=== PATIENT | female | born 1985 | race Caucasian/White ===

== ENCOUNTER 2016-11-17 23:50 | Emergency (ER) | payer OTHER ==
[~2016-11-17] VITALS: Ht 170.2 cm; Wt 135.2 kg
[~2016-11-17 23:50] MED LIST: ARIP1TAB17 PO; BSP/10 PO; CYCL10TA6 PO; CYM/30 PO; DICY20TA10 PO; DOXE10CA PO; DULO-24 PO; ERGO500037 PO; HYDR50CA2 PO; INDO-22 PO; MXL10 PO; OMEP20CA9 PO; ONDA4TAB9 PO; PRAZ2CAP2 PO; PROM25TA9 PO; SUCR1TAB29 PO; TRAZ1TAB9 PO
[2016-11-17 23:55] VITALS: TEMP 36.5; Ht 170.2 cm; Wt 135.2 kg
[2016-11-18 00:25] LABS: URINE APPEARANCE CLEAR (CLEAR); URINE BILIRUBIN NEG (NEG); URINE COLOR YELLOW; URINE NITRITE NEG (NEG); URINE SPECIFIC GRAVITY 1.015 (1.000-1.030); UROBILINOGEN NEG (NEG); ZZUR CULT IF INDIC CLEAN CATCH NO
[2016-11-18 00:28] LABS: MANUAL MICROSCOPIC REQUIRED? NO; REVIEW REQ? NO
[2016-11-18 00:43] LABS: BASO % 0.2 %; BASO ABS # 0.02 K/uL (0-0.2); COMPLETE YES; EOS % 0.2 %; IG% 0.3 %; LYMPH % 15.7 %; LYMPH ABS # 1.84 K/uL (1.2-3.4); MEAN CELL VOLUME 89.7 fL (80-100); MEAN CORPUSCULAR HEMOGLOBIN 29.8 pg (25-34); MEAN CORPUSCULAR HGB CONC 33.3 g/dl (32-36); MEAN PLATELET VOLUME 9.5 fL (7.4-10.4); MONO % 2.5 %; NEUT % 81.1 %; PLATELET COUNT 377 K/uL (130-400); RED BLOOD COUNT 5.13 M/uL (4.2-5.4)
[2016-11-18 00:48] LABS: BENZODIAZEPINE, URINE NEG (NEG); COCAINE,URINE NEG (NEG); PHENCYCLIDINE, URINE NEG (NEG)
[2016-11-18] MEDS ORDERED: CYM/30 PO (00:51)
[2016-11-18] MEDS ORDERED: DICL-201 PO (00:55)
[2016-11-18] MEDS ORDERED: COLE1TAB PO (00:55)
[2016-11-18] MEDS ORDERED: BREX1TAB2 PO (00:56)
[2016-11-18 01:03] LABS: ALT/SGPT 35 U/L (12-78); AST/SGOT 14 U/L (15-37); BLOOD UREA NITROGEN 8 mg/dl (7-18); BUN/CREATININE RATIO 11.3 (10-20); CALCIUM 8.5 mg/dl (8.5-10.1); CARBON DIOXIDE 27 mmol/L (21-32); CHLORIDE 108 mmol/L (98-107); CREATININE 0.74 mg/dl (0.60-1.20); GLUCOSE 149 mg/dl (70-99); POTASSIUM 3.8 mmol/L (3.5-5.1); SODIUM 143 mmol/L (136-145)
[2016-11-18 01:13] LABS: ALKALINE PHOSPHATASE 96 U/L (45-117)
[2016-11-18 01:23] LABS: ACETAMINOPHEN < 2 ug/ml (10-30)
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
[2016-11-18] MEDS ORDERED: ACETAMINOPHEN 500 MG TAB PO STA (03:59)
[2016-11-18 07:07] VITALS: BP 157/88; PULSE 102; O2SAT 99
[2016-11-25 18:34] LABS: SYNTHETIC CANNABINOIDS QL URIN NEGATIVE (Negative)
== END 2016-11-18 07:09 ==
LOC: C.EDB 23:52 → C.EDA 11-18 07:09
DX: R45.851 Suicidal ideations (principal); F31.9 Bipolar disorder, unspecified; F32.9 Major depressive disorder, single episode, unspecified; F17.200 Nicotine dependence, unspecified, uncomplicated; E66.9 Obesity, unspecified

== ENCOUNTER → 2017-01-18 | Outpatient (CLI) | payer OTHER ==
[~2017-01-18] MED LIST changes: -ARIP1TAB17 PO; +BREX1TAB2 PO; +COLE1TAB PO; +DICL-201 PO; -DICY20TA10 PO; -DULO-24 PO; -INDO-22 PO; +TRAZ1TAB8 PO; -TRAZ1TAB9 PO
[2017-01-18 13:35] LABS: ESTIMATED AVERAGE GLUCOSE 128 mg/dl; HA1C FLAG Normal (Normal)
[2017-01-18 13:53] LABS: CALCULATED INSULIN SENSITIVITY 0.301; GLUCOSE LOG 2.017; INSULIN FASTING 20.3 mU/L (3-25); INSULIN LOG 1.3075
[2017-01-18 13:55] LABS: THYROID STIMULATING HORMONE 1.83 uIu/ml (0.300-4.500)
== END | disposition home or self-care (01) ==
LOC: C.LAB1850 11:46
PROVIDERS: ATTEND Internal Medicine Endocrinology, Diabetes & Metabolism
DX: E28.2 Polycystic ovarian syndrome (principal)

== ENCOUNTER → 2017-01-28 | Outpatient (CLI) | payer OTHER ==
[2017-01-28 12:25] LABS: BASO % 0.3 %; BASO ABS # 0.03 K/uL (0-0.2); COMPLETE YES; EOS % 1.4 %; IG% 0.1 %; LYMPH % 22.6 %; LYMPH ABS # 2.28 K/uL (1.2-3.4); MEAN CELL VOLUME 88.5 fL (80-100); MEAN CORPUSCULAR HEMOGLOBIN 30.6 pg (25-34); MEAN CORPUSCULAR HGB CONC 34.5 g/dl (32-36); MONO % 7.2 %; NEUT % 68.4 %; PLATELET COUNT 373 K/uL (130-400); RED BLOOD COUNT 4.97 M/uL (4.2-5.4); WHITE BLOOD COUNT 10.11 K/uL (4.8-10.8)
[2017-01-28 13:01] LABS: ALT/SGPT 35 U/L (12-78); BLOOD UREA NITROGEN 6 mg/dl (7-18); BUN/CREATININE RATIO 8.8 (10-20); CALCIUM 9.1 mg/dl (8.5-10.1); CARBON DIOXIDE 23 mmol/L (21-32); CHLORIDE 106 mmol/L (98-107); CHOLESTEROL 206 mg/dl (0-200); CREATININE 0.69 mg/dl (0.60-1.20); GLUCOSE 101 mg/dl (70-99); POTASSIUM 3.5 mmol/L (3.5-5.1); SODIUM 138 mmol/L (136-145); TRIGLYCERIDES 470 mg/dl (0-150)
[2017-01-28 13:10] LABS: ALKALINE PHOSPHATASE 84 U/L (45-117); AST/SGOT 16 U/L (15-37); CHOLESTEROL/HDL RATIO 5.4; HDL CHOLESTEROL 38 mg/dl
[2017-01-28 13:43] LABS: ESTIMATED AVERAGE GLUCOSE 128 mg/dl; HA1C FLAG Normal (Normal)
--- NOTE | 2017-02-04 14:07 | CODING QUERY MEDICAL NECESSITY ---
CQSUPPORTING DIAGNOSIS NEEDED A supporting diagnosis is required for the test/procedure performed on this patient in order for us to be reimbursed by the patient's insurance. Please provide a supporting diagnosis for the following test/procedure listed below next to the test name along with your signature. *If there is no additional diagnosis for this patient that would support the following test/procedure please document that below next to the test/procedure. Test(s)/Procedure(s) that require a supporting diagnosis: DOS 01/28/17 GLYCATED HEMOGLOBIN TEST ORDERED BY VICTORIA NICKERSON Provider Signature: Date: Thank you Shakila Nguyễn Health Information Management Once completed, please kindly fax back to [phone] For questions please call [phone]
== END | disposition home or self-care (01) ==
LOC: C.LAB 11:31
PROVIDERS: ATTEND Physician Assistant
DX: Z79.899 Other long term (current) drug therapy (principal)

== ENCOUNTER 2017-09-18 16:11 | Emergency (ER) | payer OTHER ==
[~2017-09-18] VITALS: Ht 170.2 cm; Wt 126.2 kg
[~2017-09-18 16:11] MED LIST changes: +TRAZ-122 PO; -TRAZ1TAB8 PO
[2017-09-18 16:15] VITALS: BP 137/86; PULSE 87; TEMP 36.9; O2SAT 97; Ht 170.2 cm; Wt 126.2 kg
[2017-09-18] MEDS ORDERED: LIDOCAINE/EPINEPHRINE 1% 20 ML VIAL INFIL STA (16:31)
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
[2017-09-18] MEDS ORDERED: SERT-234 PO (17:06)
[2017-09-18] MEDS ORDERED: RIZA10TA18 PO (17:06)
[2017-09-18] MEDS ORDERED: NALT50TA5 PO (17:06)
[2017-09-18] MEDS ORDERED: ERGO500011 PO (17:06)
[2017-09-18] MEDS ORDERED: MELA3TAB PO (17:06)
[2017-09-18] MEDS ORDERED: TRAZ50TA35 PO (17:06)
[2017-09-18] MEDS ORDERED: GLC/500 PO (17:06)
[2017-09-18] MEDS ORDERED: COLE1TAB PO (17:06)
[2017-09-18] MEDS ORDERED: DICY10CA55 PO (17:06)
[2017-09-18] MEDS ORDERED: CYCL10TA6 PO (17:06)
[2017-09-18] MEDS ORDERED: ACETAMINOPHEN 500 MG TAB PO STA (17:28)
== END 2017-09-18 17:33 | disposition home or self-care (01) ==
LOC: C.EDB 16:13 → C.EDD 17:33
DX: S01.01XA Laceration without foreign body of scalp, initial encounter (principal); W19.XXXA Unspecified fall, initial encounter; F32.9 Major depressive disorder, single episode, unspecified; Z79.899 Other long term (current) drug therapy; F17.210 Nicotine dependence, cigarettes, uncomplicated

== ENCOUNTER 2017-09-28 21:18 | Emergency (ER) | payer OTHER ==
[~2017-09-28] VITALS: Ht 170.2 cm; Wt 131.7 kg
[~2017-09-28 21:18] MED LIST changes: -BREX1TAB2 PO; -BSP/10 PO; -CYM/30 PO; +DICY10CA55 PO; -DOXE10CA PO; +GLC/500 PO; -HYDR50CA2 PO; +MELA3TAB PO; -MXL10 PO; +NALT50TA5 PO; -PRAZ2CAP2 PO; +RIZA10TA18 PO; +SERT-234 PO; -TRAZ-122 PO; +TRAZ50TA35 PO
[2017-09-28 21:21] VITALS: BP 160/103; PULSE 102; TEMP 36.7; O2SAT 99; Ht 170.2 cm; Wt 131.7 kg
--- NOTE | 2017-09-28 21:38 | EMERGENCY ROOM VISIT NOTE ---
History First contact with patient: 21:23 Chief Complaint: SUTURE/STAPLE REMOVAL Stated Complaint: STAPLE REMOVAL Nursing Triage Summary: Suture removal from left forehead. History of Present Illness The patient is a 32 year old female who presents to the Emergency Room for staple removal from a scalp laceration that was repaired in our facility 10 days ago. The patient denies any wound complications. The patient reports that she did previously have headaches that are completely resolved at this point. Review of Systems Noncontributory Past Medical/Surgical History Medical Problems: (1) Depression (2) Migraines Family History No significant family history Social History Smoking Status: Current Every Day Smoker Alcohol Use: none Drug Use: none Marital Status: Housing Status: lives with significant other Occupation Status: unemployed Current/Historical Medications Scheduled Ergocalciferol (Vitamin D 03789 Unit), 50,000 UNIT PO 2XWK Melatonin (Melatonin), 9 MG PO HS Metformin Hcl (Glucophage), 500 MG PO BID Naltrexone Hcl (Naltrexone Hcl), 0.5 TAB PO HS Omeprazole (Prilosec), 40 MG PO QAM Rizatriptan Benzoate (Maxalt), 10 MG PO PRN UD Sertraline (Zoloft), 100 MG PO DAILY Trazodone Hcl (Trazodone), 50 MG PO HS Scheduled PRN Colestipol Hcl (Colestid), 1 GM PO DAILY PRN for Cyclobenzaprine Hcl (Flexeril), 1 TAB PO HS PRN for Muscle Spasms Diclofenac (Voltaren), 75 MG PO DIRECTED PRN for Pain Dicyclomine Hcl (Bentyl), 20 MG PO TID PRN for Pain Ondansetron (Ondansetron HCl), 4 MG PO TID PRN for Nausea or Vomiting Promethazine Hcl (Phenergan), 25 MG PO Q6H PRN for Nausea Sucralfate (Carafate), 1 GM PO QID PRN for Physical Exam Vital Signs Date Time Temp Pulse Resp B/P (MAP) Pulse Ox O2 Delivery O2 Flow Rate FiO2 18 21:21 36.7 102 18 160/103 99 Room Air Physical Exam HEENT: Examination shows a well-healed laceration. 7 phylicia were removed without any complications or wound diastases. Medical Decision & Procedures ED Course The patient was provided additional wound care instructions, including use of vitamin E oil and a high SPF factor sunblock as desired to minimize scar darkening. The patient was happy with plan of care. Medical Decision Impression Primary Impression: Encounter for removal of phylicia Additional Impression: Scalp laceration Departure Information Referrals Kevin Wong M.D.(MARQUITA) (PCP) Patient Instructions My [facility] Problem Qualifiers Additional Impression: Scalp laceration Encounter type: subsequent encounter Qualified Codes: S01.01XD - Laceration without foreign body of scalp, subsequent encounter
== END 2017-09-28 21:49 | disposition home or self-care (01) ==
LOC: C.EDB 21:19 → C.EDD 21:49
DX: S01.01XD Laceration without foreign body of scalp, subsequent encounter (principal); X58.XXXD Exposure to other specified factors, subsequent encounter; F32.9 Major depressive disorder, single episode, unspecified; F17.200 Nicotine dependence, unspecified, uncomplicated

== ENCOUNTER 2023-10-28 12:11 | Inpatient (IN) ==
[2023-10-28] MEDS ORDERED: PHENYLEPHRINE HCL 10 MG/ML VIAL ONE (13:09)
[2023-10-28] MEDS ORDERED: fentaNYL citrate PF 100 MCG/2 ML VIAL ONE ×2 (13:09→15:44)
[2023-10-28] MEDS ORDERED: MoRPHine SULFATE PF 1 MG/ML 10 ML AMP/VIAL ONE (13:09)
[2023-10-28] MEDS ORDERED: OXYTOCIN 10 UNITS/ML VIAL ONE ×2 (13:09→14:27)
[2023-10-28] MEDS ORDERED: VANCOMYCIN CONSULT ACTIVE PRN (13:21)
[2023-10-28] MEDS: LACTATED RINGER'S 1,000 ML IV SCH ×2 (13:25→17:10)
[2023-10-28] MEDS ORDERED: HYDROmorphone INJ 0.5 MG/0.5 ML SYR IV PRN (13:45)
[2023-10-28] MEDS ORDERED: NALOXONE HCL 0.08 MG in SYRINGE 1.8 ML IV PRN (13:45)
[2023-10-28] MEDS ORDERED: diphenhydrAMINE 50 MG/ML VIAL IV PRN (13:45)
[2023-10-28] MEDS ORDERED: NALBUPHINE HCL 5 MG in SYRINGE 0 ML IV PRN (13:45)
[2023-10-28] MEDS ORDERED: LACTATED RINGER'S 500 ML IV PRN (13:45)
[2023-10-28] MEDS ORDERED: NALOXONE HCL 1 MG in SODIUM CHLORIDE 0.9% 1,000 ML IV PRN (13:45)
[2023-10-28] MEDS ORDERED: NO NARCOTICS OR SEDATIVES SCH (13:45)
[2023-10-28] MEDS ORDERED: DC INTRASPINAL MORPHINE SCH (13:45)
[2023-10-28] MEDS ORDERED: ePHEDrine sulfate 50 MG/ML AMP IV PRN (13:45)
[2023-10-28] MEDS ORDERED: NALOXONE HCL 0.4 MG/1 ML VIAL/CARP IV PRN (13:45)
[2023-10-28] MEDS ORDERED: MoRPHine SULFATE 2 MG/ML CARP IV PRN (13:45)
[2023-10-28] MEDS ORDERED: ONDANSETRON INJ 2 MG/ML 2 ML VIAL IV PRN ×2 (13:45→16:31)
[2023-10-28] MEDS ORDERED: VANCOMYCIN HCL 2,000 MG in SODIUM CHLORIDE 0.9% 500 ML IV ONE (13:45)
--- NOTE | 2023-10-28 13:45 | Anesthesiology Consultation ---
Date of Service October 28, 2023 Assessment & Plan ASA ASA3 Proposed Anesthesia Anesthesia Type: Spinal Risk / Benefits Reviewed With: PT / POA / Parent / Guardian, Accepts Plan and Informed Consent Obtained History Surgery Operation Date: 10/28/23 14:00 Proposed Procedures p Section in LD(Bilateral) - Cabrera Nath MD Height/Weight Height: 5 ft 6 in Weight: 143.789 kg Allergies Allergy/AdvReac Type Severity Reaction Status Date / Time Penicillins Allergy Severe "Mother Verified 10/28/23 12:26 said it would kill me her if she ever had it again" latex Allergy Intermediate Skin dries Verified 10/28/23 12:26 out, cuts open Medications Home Medications Medication Instructions Recorded Confirmed Last Taken multivitamin 1 tab PO QAM 09/07/20 10/28/23 10/28/23 cholecalciferol (vitamin D3) 125 125 mcg PO BID 04/25/23 10/28/23 10/28/23 mcg (5,000 unit) tablet (Vitamin D3) diphenhydramine HCl 25 mg tablet 50 mg PO HS 04/25/23 10/28/23 10/27/23 labetalol 100 mg tablet 100 mg PO BID #60 tabs 04/25/23 10/28/23 10/28/23 lumateperone 42 mg capsule 42 mg PO HS 04/25/23 10/28/23 10/27/23 (Caplyta) metformin 500 mg tablet,extended 1,000 mg PO BID 04/25/23 10/28/23 10/28/23 release 24 hr valbenazine 80 mg capsule 80 mg PO QPM 04/25/23 10/28/23 10/27/23 (Ingrezza) aspirin 81 mg tablet,delayed 81 mg PO QAM 10/01/23 10/28/23 10/24/23 release insulin aspart U-100 100 unit/mL 5 unit subcut QAM 10/01/23 10/28/23 10/27/23 (3 mL) subcutaneous pen (Novolog FlexPen U-100 Insulin aspart) insulin glargine 100 unit/mL (3 0 unit subcut BID 10/01/23 10/28/23 10/27/23 mL) subcutaneous pen (Lantus Solostar U-100 Insulin) levothyroxine 175 mcg tablet 175 mcg PO QAM 10/01/23 10/28/23 10/28/23 magnesium 200 mg tablet 400 mg PO DAILY 10/01/23 10/28/23 10/28/23 montelukast 10 mg tablet 10 mg PO QAM 10/01/23 10/28/23 10/28/23 omeprazole 40 mg capsule,delayed 40 mg PO QAM 10/01/23 10/28/23 10/28/23 release NPO Date Last Intake of Fluids: 10/28/23 Time Last Intake of Fluids: 11:45 Date Last Intake of Solids: 10/28/23 Time Last Intake of Solids: 01:45 Past Medical History Medical History Gestational diabetes mellitus on insulin Anemia Mood disorder Diabetes pre Diabetic prior to Seasonal allergies HTN (hypertension) Sleep apnea Non-compliant with device History of COVID-19 05/2023- resolved Chronic diarrhea GERD (gastroesophageal reflux disease) Hypothyroidism Bipolar 1 disorder Anxiety Migraines Depression Exercise / Class Metabolic Activity II 4-5 Yardwork/Stairs/Walk up hill Past Family History Family History Grandmother (Paternal) Family history of diabetes mellitus Mother Family hx colonic polyps Other No family history of adverse response to anesthesia Past Surgical History Surgical History History of anesthesia reaction Patient states difficulty with previous epidurals due to a curvature of spine, lumbar area History of section x4 History of esophagogastroduodenoscopy (EGD) History of cholecystectomy (~2017) History of tooth extraction History of wisdom tooth extraction Past Anesthesia History No Hx of Anesthesia Complications and No Family Hx of Anesthesia Complications History of PONV No Hx of PONV and No Hx of Motion Sickness Social History Smoking Status: Former smoker tobacco type: cigarettes Smoking cigarettes per day: 10 a day Do You Dip or Chew Tobacco: No Hx Alcohol Use: No (quit 11/2016) Hx Substance Use: No substance use type: does not use Review of Systems denies fever/cough/ colds/ chest pain/ SOB/ ROSIE denies ROSIE Physical Exam Vital Signs Last Vital Signs Temp 36.6 C 10/28/23 12:21 Pulse 88 10/28/23 12:52 Resp 18 10/28/23 12:21 BP 147/90 H 10/28/23 12:52 ENMT Mouth: no TMJ abnormality and no dentition abnormality Thyromental Distance: > or= 3.5 Finger Breadths Mallampati Class: II Neck neck extension not limited Respiratory normal respiratory effort; no respiratory distress Auscultation: lungs clear to auscultation bilaterally Cardiovascular Rate/Rhythm: regular rate and regular rhythm Neurologic moves all extremities Psychiatric Orientation: alert and oriented x 3
[2023-10-28] MEDS: CITRIC ACID/SODIUM CITRATE 15 ML UDC ONE (13:54)
[2023-10-28] MEDS ORDERED: SODIUM CHLORIDE 0.9% 250 ML IV PRN (13:59)
[2023-10-28] MEDS: CLINDAMYCIN/D5W 900 MG/50 ML PREMIX BAG IV ONE (14:03)
[2023-10-28 14:05] LABS: Basophils # (auto) 0.03 K/uL (0.00-0.20); Basophils % (auto) 0.2 %; Eosinophils # (auto) 0.06 K/uL (0.00-0.50); Eosinophils % (auto) 0.5 %; Hematocrit (blood only) 38.8 % (37.0-47.0); Hemoglobin 12.9 g/dl (12.0-16.0); Immature Granulocytes # (auto) 0.04 K/uL (0.01-0.20); Immature Granulocytes % (auto) 0.3 %; Lymphocytes # (auto) 1.69 K/uL (1.20-3.40); Lymphocytes % (auto) 13.4 %; Mean Corpuscular Hemoglobin 29.3 pg (25.0-34.0); Mean Corpuscular Hgb Conc 33.2 g/dL (32.0-36.0); Mean Corpuscular Volume 88.2 fL (80.0-100.0); Mean Platelet Volume 9.9 fL (9.4-12.4); Monocytes # (auto) 0.76 K/uL (0.11-0.59); Neutrophils # (auto) 10.06 K/uL (1.40-6.50); Neutrophils % (auto) 79.6 %; Platelet Count 397 K/uL (130-400); RDW Coefficient of Variation 14.8 % (11.5-14.5); RDW Standard Deviation 47.3 fL (36.4-46.3); White Blood Count 12.64 K/ul (4.8-10.8)
[2023-10-28] MEDS: GENTAMICIN SULFATE 470 MG in DEXTROSE 5% 100 ML IV ONE (14:06)
[2023-10-28] MEDS: OXYTOCIN 10 UNITS/ML 10ML VIAL IM ONE (15:11)
[2023-10-28] MEDS: AZITHROMYCIN 500 MG in DEXTROSE 5% 250 ML IV SCH (15:24)
[2023-10-28] MEDS ORDERED: PHENYLEPHRINE 100MCG/ML 10ML SYR IV ONE (15:33)
[2023-10-28] MEDS ORDERED: ONDANSETRON INJ 2 MG/ML 2 ML VIAL ONE (15:33)
[2023-10-28] MEDS ORDERED: SENNA 8.6 MG TAB PO PRN (16:31)
[2023-10-28] MEDS ORDERED: BENZOCAINE 20% SPRY 85 APPLN/85 GM CAN EXT PRN (16:31)
[2023-10-28] MEDS ORDERED: HYDROCORTISONE ACETATE 25 MG SUPP PR PRN (16:31)
[2023-10-28] MEDS ORDERED: MAGNESIUM HYDROXIDE SUSP 30 ML UDC PO PRN (16:31)
--- NOTE | 2023-10-28 16:46 | Operative Report ---
Post Operative Report Pre & Post Diagnosis Operation Date: 10/28/23 14:00 Pre-Op Diagnosis: CHECK LABOR I identified the patient and participated in the time-out.: Yes Procedure Operation Date: 10/28/23 14:00 Actual Procedures p Section in LD(Bilateral) Bilateral salpingectomy- Cabrera Nath MD Surgeon Cabrera Nath MD Instrument Mechanic We[employer] System Dr White Estimated Blood Loss 1,183 Findings Consistent with Post-Op Diagnosis Live infant in cephalic presentation. Amniotomy showed meconium stained fluid uterus tubes ovaries was of the pelvic exam appears normal patient. This was patient's fifth sections was scar tissue and adhesions between the omentum and abdominal wall that has to be carefullly dissected. Fluids IVF; 2500ml Urine ;150ml Specimens Placenta , Cord bloos and gasses Drains NOne Anesthesia Type Spinal Complications none Indications 1. at term #2 prior section x 4 #3 undesired fertility wishes to have permanent sterilization Description of Procedure Patient brought to the operating room Prepped and draped in normal sterile fashion in dorsal supine position with a leftward tilt. Time out is performed. Patient is identified by name and date of . Allergy and antibiotics and reviewed and confirmed. Skin check is performed to see if anesthesia is adequate A Pfannenstiel incision is made and carried out to the fascia with a scalpel. Fascia is incised in the midline extended laterally on both sides with Hayes scissors. Gisselle's were used to grab the superior part of the fascial incision and the rectus abdominis muscle dissected with Hayes scissors.. Same procedure was performed on the lower section of the fascia. The rectus muscle is then in the midline and the peritoneum identified, tented up and entered sharply with the Metzenbaum scissors. The peritoneal incision was then extended superiorly and inferiorly with good visualization of the bladder. An Nima retractor was then inserted to provide better visualization and retraction. Vesicouterine peritoneum was identified, grasped with pickups and entered sharply with Metzenbaum scissors. There was some movement to adhesions stuck to the abdominal wall that had to be carefully dissected there was good hemostasis. The incision was then extended laterally and the bladder flap created with Metzenbaum scissors. The lower uterine segment incision was performed in a transverse fashion with a scalpel. Uterine incision was then extended laterally with the bandage scissors . Amniotomy is performed. Amniotic fluid was meconium stained The infant's head was delivered atraumatically. There is one nuchal cord which is easily reduced Nose and mouth suctioned with the bulb suction. Delayed cord clamping performed and cord is then clamped and cut and infant is handed over to the waiting pediatric team. Cord blood and gases obtained The placenta is then removed manually the uterus is exteriorized and cleared of all clots and debris. Uterine incision it repaired with 0-Vicryl in a locking fashion. A second layer of 0-Vicryl is used to obtain excellent hemostasis. Uterus is placed back into the abdominal cavity. TUBAL LIGATION; Attention is paid to the tubal ligation part of the procedure. The left and right fallopian tube identified and followed from the fimbriated ends to the cornual regions. This is confirmed by both surgeon and assistant spa director. Both ovaries were examined and found was found to be grossly normal looking. A hand-held LigaSure device was used to transect the both fallopian tubes staying close to the fallopian tube in order to preserve the vascular integrity of the ovary. Fallopian tubes were sent to pathology. There was good hemostasis. The bladder flap was repaired in a running fashion with plain suture. Copious amount of irrigation was used to irrigate the abdomen. Gutters were cleared of all clots and debris . Hemostasis was obtained. The Nima retractor is removed as well as sponges or instruments in the abdomen. The peritoneum was identified and closed in a running fashion using plain suture. The rectus abdominis muscle was examined to ensure there no bleeding. The rectus abdominis muscle was approximated loosely using plain suture in a [id number] manner. Once again hemostasis is confirmed. The fascia was grasped with Avenue's and closed in a running fashion. Both fascial layers are closed together using 0-Vicryl suture. Subcutaneous space is irrigated and hemostasis was confirmed. Subcutaneous spac e is approximated with plain suture. Skin is closed with phylicia. The patient tolerated procedure well sponge just labs needle counts were correct x2 patient is sent to recovery in stable condition I attest to the content of the Intraoperative Record and any orders documented therein. Any exceptions are noted below. Instrument [employer] was necessary for retraction and manipulation of instruments in order to provide for a safe operation
[2023-10-28] MEDS: KETOROLAC 30 MG/ML VIAL IV PRN (17:07)
[2023-10-28] MEDS: SODIUM CHLORIDE 0.9% 1,000 ML IV SCH (17:09)
[2023-10-28] MEDS: MoRPHine SULFATE PF 1 MG/ML 10 ML AMP/VIAL INT SPINAL ONE (17:09)
[2023-10-28] MEDS: SIMETHICONE 80 MG CHEW PO SCH (17:10)
[2023-10-28] MEDS: DIPHTHER/TETAN/PERTUS Vaccine (Tdap, Adol/Adult) 0.5mL IM ONE (17:10)
--- NOTE | 2023-10-28 17:14 | Anesthesiology Progress Note ---
Date of Service October 28, 2023 Anesthesia Post Procedure Vital Signs Vital Signs: Temp Pulse Resp BP Pulse Ox 10/28/23 17:08 94 H 99 10/28/23 17:04 88 120/57 L 10/28/23 17:03 87 100 10/28/23 16:58 88 100 10/28/23 16:54 82 120/58 L 10/28/23 16:53 82 100 10/28/23 16:48 82 100 10/28/23 16:44 81 117/58 L 10/28/23 16:43 80 99 10/28/23 16:38 82 99 10/28/23 16:34 18 10/28/23 16:34 84 117/60 10/28/23 16:33 85 100 10/28/23 16:28 81 100 10/28/23 16:24 36.4 C L 18 10/28/23 16:24 77 112/54 L 10/28/23 16:23 78 100 10/28/23 12:52 88 147/90 H 10/28/23 12:21 36.6 C 18 10/28/23 12:20 81 155/76 H Transfer of Care Handoff Completed per policy Notes Mental Status: alert / awake / arousable and participated in evaluation Patient Amnestic to Procedure: Yes Nausea / Vomiting: adequately controlled Pain: adequately controlled Airway Patency, RR, SpO2: stable & adequate BP & HR: stable & adequate Hydration State: stable & adequate Anesthetic Complications: no major complications apparent and Pt Satisfied with anesthetic care
[2023-10-28] MEDS: OXYTOCIN 20 UNITS/LR 1,002 ML IV SCH (18:34)
[2023-10-28] MEDS: DOCUSATE SODIUM 100 MG CAP PO SCH (21:02)
--- OUTSIDE RECORDS SUMMARY | 2023-10-28 22:40 | External Medical Summary | Summary of Care ---
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 Earl RN ICD-10 update of inactive term Tobacco use disorder 09/19/2009 012 Overview: 3-4 ciggs daily at NOB visit; desires to quit Obesity, Class I, BMI 30.0-3 4.9 (see actual BMI) 09/19/2009 06/08/2011 Overview: Declines nutrition consult Encounter for supervision of other normal 07/18/2005 02/25/2006 Overview: ICD-10 update of inactive term Migraine variant 10/29/2011 Major depressive disorder, r ecurrent episode, moderate 10/29/2011 Overview: last on med in 2007- paxil, effexor, prozac, wellbutrin documented as of this encounter (statuses as of 10/25/2023) Immunizations Name Administration Dates Next Due DTaP Dipth/Tet/Acell Pertussis (Infanrix), Peds 2010 Hepatitis B, 20+ yrs 08/31/2010 PPD 03/21/2017, 5,12/14/2009,11/30 Pneumococcal Polysaccharide PPV23 (Pneumovax) 05/06/2014 Seasonal Influenza Virus Vac cine, Unspecified Formulation 09/22/2019 Seasonal Influenza, Quadriva lent, No Preserve, IM 06/10/2015 Seasonal Influenza, Split, I IV3, With Preserve, Inj 05/06/2014,06/06/2012,04/12/2011,04/12 TDAP (age 10 and older)(Boostrix) 08/21/2023,07/2011 documented as of this encounter Social History Tobacco Use Types Packs/Day Years Used Date Smoking Tobacco: Former Cigarettes 1 14 0 01/03/2007 - 01/03/2021 Smokeless Tobacco: Never Comments:began at age 14 Alcohol Use Standard Drinks/Week Comments Not Currently 0 (1 standard drink = 0.6 oz pur e alcohol) AUDIT-C Answer Date Recorded Frequency of Alcohol Consumption Monthly or less 05/14/2018 Average Number of Drinks 3 or 4 018 Frequency of Binge Drinking Never 01/2018 PHQ-2 Answer Date Recorded PHQ Adult Total Score 0 10/04/2022 Hunger Vital Sign Answer Date Recorded Within the past 12 months, y ou worried that your food would run out before you got the money to buy more. Sometimes true Within the past 12 months, t he food you bought just didn't last and you didn't have money to get more. Sometimes true Estimated Date of Delivery Comme nts Yes 11/04/2023 Based on Ultraso und Sex and Gender Information Value Date Recorded Sex Assigned at Female 12/12/2020 4:59 PM EDT Gender Identity Female 12/12/2020 4:59 PM EDT Sexual Orientation Straight 12/12/2020 4: 59 PM EDT Job Start Date Occupation Industry Not on file Not on file Not on file documented as of this encounter Functional Status Functional Status Response Date of Assess ment Are you deaf or do you have serious difficulty h earing? No 04/16/2014 Are you blind or do you have serious difficulty seeing, even when wearing glasses? No 04/16/2014 Do you have serious difficul ty walking or climbing stairs? (5 years old or older) No 04/16/2014 Do you have difficulty dress ing or bathing? (5 years old or older) No 04/16/2014 Because of a physical, menta l, or emotional condition, do you have difficulty doing errands alone such as visiting a doctor s office or shopping? (15 years old or older) No 04/16/20 14 Cognitive Status Response Date of Assessm ent Because of a physical, menta l, or emotional condition, do you have serious difficulty concentrating, remembering, or making decisions? (5 years old or older) Yes 04/16/2014 documented as of this encounter Miscellaneous Notes * Telephone Encounter - Heather Maher MD - 10/25/2023 8:00 AM EDT Signed Prescriptions: Disp Refills Montelukast Sodium 10 MG Oral Tablet (Sing*90 Tab*1 Sig: TAKE 1 TABLET BY MOUTH EVERY DAY IN THE MORNING Authorizing Provider: HEATHER MAHER * Telephone Encounter - Gregg Patel [facility] - 10/24/2023 3:52 PM EDTPending Prescriptions: Disp Refills Montelukast Sodium 10 MG Oral Tablet (Sing*90 Tab*1 Sig: TAKE 1 TABLET BY MOUTH EVERY DAY IN THE MORNING * Telephone Encounter - Gregg Patel [facility] - 10/24/2023 3:51 PM EDT Pending Prescriptions: Disp Refills Montelukast Sodium 10 MG Oral Tablet (Sing*90 Tab*1 Sig: TAKE 1 TABLET BY MOUTH EVERY DAY IN THE MORNING Last Visit: 06/27/2023 (in office), Visit date not found (telemedicine) Next Visit: Visit date not found If no future appointments scheduled, and last appointment is greater than a year ago, please schedule patient for a follow-up appointment Last date the medication was ordered: 06-20-23 Pharmacy: [id number] [facility] Is this request for a controlled substance?No Urine Drug Screen:No results found. However, due to the size of the patient record, not all encounters were searched. Please check Results Review for a complete set of results. Patient Phone Numbers Labs: Lab Results Component Value Date/Time CREAT 0.8 10/17/2023 01:45 PM CREAT 0.9 06/18/2020 09:35 AM POTASSIUM 4.2 10/17/2023 01:45 PM POTASSIUM 4.5 06/18/2020 09:35 AM TSH 3.18 09/02/2023 08:26 AM TSH 3.73 06/18/2020 09:35 AM LDLCALC 174 (H) 12/07/2022 09:03 AM LDLCALC 02/17/2020 09:57 AM Uninterpretable, recommend direct LDL cholesterol testing. ALT 14 10/17/2023 01:45 PM ALT 19 06/18/2020 09:35 AM HGBA1C 5.7 (H) 12/07/2022 09:03 AM HGBA1C 6.2 (H) 02/17/2020 09:57 AM documented in this encounter Plan of Treatment Upcoming Encounters Date Type Department Care Team (Late st Contact Info) Description 10/29/2023 11:00 AM EDT Office Visit Gynecology/Obstetrics [facility] [address] [place] [address] Shama Choudhury CRNP [address] [place] [id number] Yin Canseco [facility] [address] [place] [address] 11/06/2023 10:30 AM EDT Office Visit Gynecology/Obstetrics [facility] [address] [place] [address] Shama Choudhury CRNP [address] [place] [address] 12/09/2023 10:30 AM EDT Office Visit Gynecology/Obstetrics [facility] [address] [place] [address] Shama Choudhury CRNP [address] [place] [address] 01/16/2024 4:00 PM EDT Office Visit Family Practice [facility] [address] [place] [address] Heather Maher MD [address] [place] [address] Scheduled Procedures Name Priority Associated Diagnoses Date/Ti me COLONOSCOPY FLEXIBLE PROXIMAL DIAGNOSTIC Recall Screen for colon cancer Health Maintenance Due Date Last Done Comments Hepatitis B (2 of 3 - 19+ 3-dose series) 09/28/2010 08/31/2010 Pneumococcal Vaccine: Pediatrics (0 to 5 Years) and At-Risk Patients (6 to 64 Years) (2 of 2 - PCV) 05/06/2015 05/06/2014 Influenza Vaccine (FLU shot) (Season Ended) 2024 09/22/2019, 06/10/2015, 05/06/2014, Additional history exists TSH 09/02/2024 09/02/2023, 07/09, 08/03/2023, Additional history exists GFR 10/16/2024 10/17/2023, 07/09, 05/20/2023, Additional history exists Pap Smear 05/08/2026 05/08/2023, 01/05, 01/01/2017, Additional history exists Cervical Cancer Screening 05/08/2028 HPV/Co-Test 05/08/2028 05/08/2023 DTaP,Tdap,and Td Vaccines (4 - Td or Tdap) 08/21/2033 08/21/2023, 02/06/2012, 2010 Albumin/Creatinine Ratio Discontinued 10/04/2022 COVID-19 Vaccine Discontinued GARDASIL-HPV IMMUNIZATION SERIES Aged Out No longer eligible based on patient's age to complete this topic MENINGOCOCCAL (MENACTRA/MENVEO) Aged Out No longer eligible based on patient's age to complete this topic documented as of this encounter Medical Devices Not on filedocumented as of this encounter Care Teams Graffiti Cleaner Relationship Specialty Start Date End Date Heather Maher MD [address] [place] [address] PCP - General Internal Medicine 04/25/21 documented as of this encounter
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
[2023-10-29 06:22] LABS: Basophils # (auto) 0.04 K/uL (0.00-0.20); Basophils % (auto) 0.3 %; Eosinophils # (auto) 0.19 K/uL (0.00-0.50); Eosinophils % (auto) 1.6 %; Hematocrit (blood only) 30.9 % (37.0-47.0); Hemoglobin 10.1 g/dl (12.0-16.0); Immature Granulocytes # (auto) 0.04 K/uL (0.01-0.20); Immature Granulocytes % (auto) 0.3 %; Lymphocytes # (auto) 2.15 K/uL (1.20-3.40); Lymphocytes % (auto) 18.1 %; Mean Corpuscular Hemoglobin 28.9 pg (25.0-34.0); Mean Corpuscular Hgb Conc 32.7 g/dL (32.0-36.0); Mean Corpuscular Volume 88.5 fL (80.0-100.0); Mean Platelet Volume 9.9 fL (9.4-12.4); Monocytes # (auto) 0.99 K/uL (0.11-0.59); Monocytes % (auto) 8.3 %; Neutrophils # (auto) 8.49 K/uL (1.40-6.50); Neutrophils % (auto) 71.4 %; Platelet Count 293 K/uL (130-400); RDW Coefficient of Variation 14.6 % (11.5-14.5); RDW Standard Deviation 47.3 fL (36.4-46.3); Red Blood Count 3.49 M/uL (4.20-5.40)
[2023-10-29] MEDS: CITRIC ACID/SODIUM CITRATE 15 ML UDC PO SCH (07:14)
[2023-10-29] MEDS: PRENATAL VITAMIN 1 TAB PO SCH (07:18)
[2023-10-29] MEDS: FERROUS SULFATE 325 MG TAB PO SCH (07:18)
[2023-10-29] MEDS ORDERED: PROMETHAZINE HCL 25 MG in SODIUM CHLORIDE 0.9% 50 ML IV PRN (07:46)
[2023-10-29] MEDS ORDERED: diphenhydrAMINE Capsule 25 MG CAP PO PRN (07:46)
[2023-10-29] MEDS ORDERED: diphenhydrAMINE 50 MG/ML VIAL IV PRN (07:46)
--- NOTE | 2023-10-29 09:05 | Obstetrical Progress Note ---
Date of Service October 29, 2023 Assessment & Plan Admission and Anticipated Discharge Date Admission Date: October 28, 2023 Subjective Postop day #1 Patient is seen and examined Feels well, no complaints Pain is under control with meds No CP/ SOB/ Dizziness/ N&V/ VB/ Leg pain Not OOB yet Tolerating clears and ate breakfast this morning Breast feeding Lab Results 10/28/23 10/29/23 Range/Units 13:46 05:45 WBC 12.64 H 11.90 H (4.8-10.8) K/ul RBC 4.40 3.49 L (4.20-5.40) M/uL Hgb 12.9 10.1 L (12.0-16.0) g/dl Hct 38.8 30.9 L (37.0-47.0) % MCV 88.2 88.5 (80.0-100.0) fL MCH 29.3 28.9 (25.0-34.0) pg MCHC 33.2 32.7 (32.0-36.0) g/dL RDW Std Deviation 47.3 H 47.3 H (36.4-46.3) fL RDW Coeff of Payton 14.8 H 14.6 H (11.5-14.5) % Plt Count 397 293 (130-400) K/uL MPV 9.9 9.9 (9.4-12.4) fL Immature Gran % (Auto) 0.3 0.3 % Neut % (Auto) 79.6 71.4 % Lymph % (Auto) 13.4 18.1 % Surry % (Auto) 6.0 8.3 % Eos % (Auto) 0.5 1.6 % Baso % (Auto) 0.2 0.3 % Neut # (Auto) 10.06 H 8.49 H (1.40-6.50) K/uL Lymph # (Auto) 1.69 2.15 (1.20-3.40) K/uL Surry # (Auto) 0.76 H 0.99 H (0.11-0.59) K/uL Eos # (Auto) 0.06 0.19 (0.00-0.50) K/uL Baso # (Auto) 0.03 0.04 (0.00-0.20) K/uL Immature Gran # (Auto) 0.04 0.04 (0.01-0.20) K/uL Blood Type A Positive Antibody Screen NEGATIVE Crossmatch See Detail Vital Signs Temp Pulse Resp BP Pulse Ox O2 Del Method 10/29/23 07:24 36.6 C 85 18 135/79 99 Room Air 10/29/23 07:15 16 99 10/29/23 06:05 18 99 10/29/23 05:00 18 97 10/29/23 04:00 17 97 10/29/23 03:10 36.6 C 79 17 122/75 99 Room Air 10/29/23 03:00 18 99 10/29/23 02:00 17 100 10/29/23 01:00 18 100 10/29/23 00:00 16 100 10/28/23 23:05 36.9 C 76 18 119/72 98 Room Air 10/28/23 23:00 18 100 10/28/23 22:00 18 100 Intake & Output 10/28/23 10/29/23 10/29/23 22:59 06:59 14:59 Intake Total 2500 / 4446.95 981.25 / 4446.95 Output Total 1481 / 1891 410 / 1891 Balance 1019 / 2555.95 571.25 / 2555.95 Intake: IV 981.25 / 1946.95 Oxytocin 20 Units/Lr 1,002 ml @ 981.25 / 981.25 125 mls/hr IV .Q8H1M [facility] Rx#: [id number] IV Perioperative 2500 / 2500 Output: Output, Cumulative Blood Loss ( 1231 / 1231 QBL) Amount Delivery 1183 / 1183 Recovery 48 / 48 Urine Amount (Catheter) 250 / 660 410 / 660 Castellanos/Indwelling 250 / 660 410 / 660 PE: General: Alert, orientedx3, NAD CVS: S1S2 RRR Lungs: CTAB Abd: soft, NT, ND, BS+, Incision/ PIC Dressing C/D/I No VB Ext: NT, no edema, SCD's on AP: 38 yo female s/p R Csection, Bilateral salpingectomy , pod#1 VSS Afebrile doing well H&H stable UOP good Continue to routine postop care Encourage PO intake, may ambulate D/C castellanos Results & Data Vital Signs (Past 12 Hours) Vital Signs Temp Pulse Resp BP Pulse Ox O2 Del Method 10/29/23 07:24 36.6 C 85 18 135/79 99 Room Air 10/29/23 07:15 16 99 10/29/23 06:05 18 99 10/29/23 05:00 18 97 10/29/23 04:00 17 97 10/29/23 03:10 36.6 C 79 17 122/75 99 Room Air 10/29/23 03:00 18 99 10/29/23 02:00 17 100 10/29/23 01:00 18 100 10/29/23 00:00 16 100 10/28/23 23:05 36.9 C 76 18 119/72 98 Room Air 10/28/23 23:00 18 100 10/28/23 22:00 18 100
[2023-10-29] MEDS ORDERED: PHARMACY GLYCEMIC MGMT CONSULT PRN (09:35)
[2023-10-29] MEDS: oxyCODONE/ACETAMINOPHEN 5mg/325mg TAB PO PRN (09:46)
[2023-10-29] MEDS: IBUPROFEN 600 MG TAB PO PRN (09:47)
[2023-10-29] MEDS: LABETALOL HCL 100 MG TAB PO SCH (09:49)
[2023-10-29] MEDS: INSULIN ASPART PER UNIT CHARGE SC SCH (14:52)
--- NOTE | 2023-10-29 15:16 | Pharmacy Report ---
Pharmacy Glycemic Short Note 2 - Date of Service October 29, 2023 - Glycemic Short BSG Results (Last 24 hours): 10/29/23 14:35 POC Glucose 144 H OUTPATIENT ANTIDIABETIC REGIMEN: * prepregnancy: metformin 1000mg QAM (as of 01/02/23) * antpartum: Novolog 5 unit sQAM, Lantus 40 units QAM, Lantus 55 units QPM * HbA1c pending ASSESSMENT: * Emil is a 38 YOF admitted status post with a history of pred iabetes and PCOS. Pharmacy has been consulted for glycemic management while inpatient. * Lunchtime BSG within goal range today, will add low dose basal insulin scale if BSGs are elevated. * Correctional insulin initiated, will hold carbohydrate coverage at this time. Metformin restarted per provider. PLAN FOR INPATIENT GLYCEMIC CONTROL: * Hold outpatient oral diabetes medications * Basal insulin * Lantus 0-5 units SQ BID * Bolus insulin * NovoLog per scale ACHS or Q6hrs while NPO * Goal Range: Low 120 mg/dL - High 160 mg/dL * Correction Factor: 45 mg/dL/unit * Nutritional / Prandial insulin per carb ratio of 1 unit per -- grams CHO consumed
[2023-10-29] MEDS ORDERED: Nursing to Pharmacy Communication SCH (17:15)
[2023-10-29] MEDS: metFORMIN HCL 500 MG TAB PO SCH (17:27)
--- NOTE | 2023-10-29 18:01 | Obstetrical Progress Note ---
Date of Service October 29, 2023 Assessment & Plan Admission and Anticipated Discharge Date Admission Date: October 28, 2023 Subjective Patient is reevaluated. She feels better, has been ambulating She normally takes Caplyta for BPD, Manic episodes and Ingrezza to prevent tardive dyskinesia We made research about breast feeding and those meds and there are studies on Caplyta and it seems acceptable, but for Ingrezza I called [place] [facility] and naomi are closed and left a message to call me back in the morning Patient is okay just taking Caplyta tonight and hold on Ingrezza. We called pharmacy here and provided writtten information to her. All questions were answered. Results & Data Vital Signs (Past 12 Hours) Vital Signs Temp Pulse Resp BP Pulse Ox O2 Del Method 10/29/23 15:31 36.5 C 83 18 133/84 96 Room Air 10/29/23 11:33 36.6 C 82 16 139/84 97 Room Air 10/29/23 09:50 88 16 143/81 H 97 Room Air 10/29/23 07:24 36.6 C 85 18 135/79 99 Room Air 10/29/23 07:15 16 99 10/29/23 06:05 18 99
[2023-10-29] MEDS: CHOLECALCIFEROL 125 MCG (5,000 UNITS) TAB PO SCH (20:38)
[2023-10-29] MEDS: bisacodyL 5 MG TABEC PO SCH (20:39)
[2023-10-29] MEDS ORDERED: LABETALOL HCL 100 MG TAB PO SCH (21:00)
[2023-10-29] MEDS ORDERED: NON-FORMULARY MEDICATION (Lumateperone [Caplyta] 42 mg capsule) PO SCH (21:00)
[2023-10-29] MEDS: LANTUS PER UNIT CHARGE SC SCH (21:04)
[2023-10-29] MEDS: LUMATEPERONE 42 MG PO SCH (21:08)
[2023-10-30] MEDS: LEVOTHYROXINE SODIUM 175 MCG TABLET PO SCH (06:02)
[2023-10-30] MEDS: MAGNESIUM OXIDE 400 MG TAB PO SCH (08:06)
[2023-10-30] MEDS: MONTELUKAST SODIUM 10 MG TABLET PO SCH (08:06)
--- NOTE | 2023-10-30 08:27 | Obstetrical Progress Note ---
Date of Service October 30, 2023 Assessment & Plan (1) Status post delivery: POD #2 Pt doing well Pre gestational GTN. On Metformin. BS are unremarkable, will continue BS today, if Bs are elevated will augment with insulin Discussed and Meds with Dr Patel- Waiting to her from center Anticipate disch today Results & Data Vital Signs (Past 12 Hours) Vital Signs Temp Pulse Resp BP Pulse Ox O2 Del Method 10/30/23 00:00 36.6 C 88 17 107/63 97 Room Air 10/29/23 20:36 92 H 130/81
[2023-10-30 10:29] LABS: Hematocrit (blood only) 30.8 % (37.0-47.0); Hemoglobin 9.9 g/dl (12.0-16.0)
[2023-10-30 10:48] LABS: Estimated Average Glucose 120 mg/dl; Hemoglobin A1C 5.8 % (4.5-5.6)
[2023-10-30] MEDS ORDERED: bisacodyL 10 MG SUPP PR PRN (16:31)
== END 2023-10-30 14:45 | disposition home or self-care (01) | DRG 785 ==
LOC: OPB 12:11 → 4S1 12:17 → 4E2 19:49
PROC: M.PPTLD (2023-10-28 14:00)